=== PATIENT | female | born 1965 | race African-American/Black ===

== ENCOUNTER 2022-04-10 08:29 | Emergency (ER) | payer OTHER, SELFPAY ==
--- NOTE | ~2022-04-10 | XR_ITS ---
EXAMINATION: XR forearm RT 2V DATE: 04/10/2022 09:21 INDICATION: Right forearm laceration and swelling. TECHNIQUE: 2 views of right forearm were obtained. COMPARISON: None. FINDINGS: Bone alignment is normal. No fracture. Joint spaces are well maintained. There is no elbow joint effusion. IMPRESSION: 1. No fracture or radiopaque foreign body. Reviewed, dictated and finalized at location A.
[2022-04-10 08:41] VITALS: BP 151/87; PULSE 77; RESP 16; TEMP 36.6; O2SAT 99
--- NOTE | 2022-04-10 09:25 | ED.WOUNDLAC ---
HPI - Wound/Laceration General Chief Complaint: Wound/Laceration Stated Complaint: fell yesterday, arm injury Time Seen by Provider: 04/10/22 08:55 History of Present Illness HPI narrative: 56-year-old female presents emergency room for evaluation of injury to right forearm sustained from a fall that occurred yesterday. Patient states that she was carrying groceries down the stairs when she lost her footing and fell against the loose railing. The railing is wooden and when she fell into it caused her to have a skin tear to her right forearm. Injury occurred yesterday. Patient is noted swelling around the injured site. Related Data Allergies Allergy/AdvReac Type Severity Reaction Status Date / Time No Known Allergies Allergy Unverified 11/28/17 17:46 Review of Systems Review of Systems: CONSTITUTIONAL: Denies fever, chills, or sweats. EYES: Denies visual changes, redness, or discharge. ENT: Denies rhinorrhea, congestion, sore throat, or otalgia. CARDIOVASCULAR: Denies chest pain, palpitations, or edema. RESPIRATORY: Denies cough or dyspnea. GASTROINTESTINAL: Denies abdominal pain, nausea, vomiting, or diarrhea. GENITOURINARY: Denies dysuria or hematuria. SKIN: Denies rash or itching. MUSCULOSKELETAL: Reports right forearm pain NEUROLOGIC: Denies headache, numbness, dizziness, or weakness. PSYCHIATRIC: Denies anxiety or depression. Exam Narrative: GENERAL: Well-appearing, well-nourished, no physical limitations, and in no acute distress. HEAD: Normocephalic, atraumatic. EYES: Conjunctivae normal, PERRLA and EOMI. CHEST: Clear to auscultation. No respiratory distress. No wheezes rales or rhonchi. HEART: Regular rate and rhythm. No murmur heard. Normal peripheral pulses. EXTREMITIES: Normal range of motion. No edema. No clubbing or cyanosis SKIN: 1.5 cm skin tear anterior surface of the right forearm with surrounding tenderness and soft tissue swelling NEURO: No focal deficits. Alert and oriented x3. MAEW. CN's II-XI intact bilaterally, normal gait PSYCH: Cooperative. Normal mood and affect. Course Vital Signs Vital signs: Vital Signs Temperature 36.6 C 04/10/22 08:41 Pulse Rate 77 04/10/22 08:41 Respiratory Rate 16 04/10/22 08:41 Blood Pressure 151/87 H 04/10/22 08:41 Pulse Oximetry 99 04/10/22 08:41 Oxygen Delivery Room Air 04/10/22 08:41 Temperature 36.6 C 04/10/22 08:41 Pulse Rate 77 04/10/22 08:41 Respiratory Rate 16 04/10/22 08:41 Blood Pressure 151/87 H 04/10/22 08:41 Pulse Oximetry 99 04/10/22 08:41 Oxygen Delivery Room Air 04/10/22 08:41 MDM - Wound/Laceration Imaging Data Radiologist's impression: Impressions Forearm X-Ray 04/10/22 09:27 IMPRESSION: 1. No fracture or radiopaque foreign body. Discharge Plan Discharge Clinical Impression: Avulsion of skin, Contusion of forearm, right Patient Disposition: Home, Self-Care Condition: Stable Instructions: Antibiotic Form, Steristrips (ED) Additional Instructions: Keep wound clean and dry. Steri-Strips will fall off in 2 to 3 days. May apply ice to your injured forearm. Prescriptions: New cephalexin 500 mg capsule 500 mg PO Q12H 7 Days Qty: 14 0RF Follow-up/Referrals: UNKNOWN,DOCTOR [Primary Care Provider] - Time of Disposition: 09:48
[2022-04-10] MEDS: TETANUS,DIPHTHERIA,AC PERTUSSIS ADULT (0.5 ML) BOOSTRIX IM (10:02)
== END 2022-04-10 10:05 | disposition home or self-care (01) ==
PROVIDERS: Emergency Provider Nurse Practitioner Family
DX: S51.811A Laceration without foreign body of right forearm, initial encounter (principal); S50.11XA Contusion of right forearm, initial encounter; Z23 Encounter for immunization; W10.9XXA Fall (on) (from) unspecified stairs and steps, initial encounter
CPT/HCPCS: 73090; 90471; 90715; 99283

== ENCOUNTER 2022-05-02 14:18 | Emergency (ER) | payer OTHER, SELFPAY ==
[2022-05-02 14:22] VITALS: BP 154/87; PULSE 83; RESP 20; TEMP 36.2; O2SAT 94
--- NOTE | 2022-05-02 15:10 | PC.NURSE ---
pt states her ride has to be at work at 5 so she will come back in the morning to be seen.
== END 2022-05-02 15:54 | disposition left against medical advice (07) ==
DX: R21 Rash and other nonspecific skin eruption (principal)
CPT/HCPCS: 99199

== ENCOUNTER 2022-06-30 13:42 | Emergency (ER) | payer OTHER, SELFPAY ==
--- NOTE | ~2022-06-30 | CT_ITS ---
EXAMINATION: CT soft tissue neck w con DATE: 06/30/2022 17:37 INDICATION: Right facial swelling TECHNIQUE: Computed tomography (CT) of the neck was performed with 75 mL Omnipaque-350 intravenous co ntrast. Automated exposure control and iterative reconstruction technique were employed. The dose-beata gth product was 498.32 mGy-cm. COMPARISON: None FINDINGS: Extensive dental disease with multiple maxillary dental caries of varying severity. There are periapi elizabeth lucencies associated with the bilateral maxillary central and lateral incisors, the largest on th e left. The periapical lucency associated with the right central incisor erodes through the anterior cortex with associated 14 x 6 x 11 mm subperiosteal abscess which underlies the right nasolabial fold . Extensive stranding and haziness to the surrounding subcutaneous fat consistent with secondary cell ulitis. This extends across the midline at the upper lip, cephalad into the preseptal soft tissues at the inferior right orbit and caudally along the right cheek into the anterior right mandibular regio n. Orbits are are otherwise normal with no post septal inflammatory stranding. Opacification of a left e thmoid air cell. Remainder of the paranasal sinuses are clear. Mastoid air cells and middle ear cavit ies are clear. Mild likely reactive lymphadenopathy in the bilateral submandibular and high right jug ular chains. The bilateral parotid, submandibular and thyroid glands are normal. Mild emphysema at th e apices of lungs. Mild cervical spondylosis. IMPRESSION: 1. Extensive dental disease with erosion of a periapical abscess associated with the right maxillary central incisor which erodes through the anterior cortex with associated 14 x 6 x 11 mm subperiosteal abscess underlying the right nasolabial fold. Reviewed, dictated and finalized at location A. S [employer] IMPRESSION: 1. Extensive dental disease with erosion of a periapical abscess associated wit h the right maxillary central incisor which erodes through the anterior cortex with associated 14 x 6 x 11 mm subperiosteal abscess underlying the right nasol abial fold.
[2022-06-30 13:55] VITALS: BP 136/72; PULSE 82; RESP 14; TEMP 36.6; O2SAT 99
--- NOTE | 2022-06-30 15:45 | ED.DENTAL ---
HPI - Dental/Oral General Chief complaint: Dental/Oral Stated complaint: swelling to right eye Time Seen by Provider: 06/30/22 15:40 History of Present Illness HPI Narrative: A 56-year-old female with a history of hypertension presenting with facial swelling. Patient states that she has multiple teeth that need to be pulled. She has an appointment in 10 days to have most of her upper teeth pulled. Unfortunately, over the last several days she has had pain in one of her right upper molars and has since developed swelling on the right side of her face. States that it has been gradually getting worse over the last day and a half. States that today she woke up and the swelling was up to her eye. States that her pain has been moderately improved with ibuprofen. She denies any throat pain, dysphagia, odynophagia. Denies eye pain or vision changes. No fevers or chills. Related Data Allergies Allergy/AdvReac Type Severity Reaction Status Date / Time No Known Allergies Allergy Verified 06/30/22 13:58 Review of Systems Review of Systems: All systems reviewed & are unremarkable except as noted in HPI and below Exam Narrative: GENERAL: Well-appearing, well-nourished, and in no acute distress. HEAD: Normocephalic, atraumatic. EYES: PERRLA and EOMI. ENT: Poor dentition throughout with multiple broken and decaying teeth, facial swelling of the right side of her face extending to the right eye, no overlying erythema, no intraoral swelling, handling her secretions well NECK: Supple. CHEST: Clear to auscultation. No respiratory distress. HEART: Regular rate and rhythm. No murmur heard. Normal peripheral pulses. ABDOMEN: Soft, nontender, nondistended, normal active bowel sounds. EXTREMITIES: Normal range of motion. No edema. SKIN: Warm, dry, no rash. NEURO: No focal deficits. Alert and oriented x3. PSYCH: Normal mood and affect. Course Vital Signs Vital signs: Vital Signs Temperature 97.8 F 06/30/22 13:55 Pulse Rate 82 06/30/22 13:55 Respiratory Rate 14 06/30/22 13:55 Blood Pressure 136/72 06/30/22 13:55 Pulse Oximetry 99 06/30/22 13:55 Oxygen Delivery Room Air 06/30/22 13:55 Temperature 97.8 F 06/30/22 13:55 Pulse Rate 82 06/30/22 13:55 Respiratory Rate 14 06/30/22 13:55 Blood Pressure 136/72 06/30/22 13:55 Pulse Oximetry 99 06/30/22 13:55 Oxygen Delivery Room Air 06/30/22 13:55 MDM - Dental/Oral MDM Narrative Medical decision making narrative: Patient is a 56-year-old female presenting with right-sided facial pain in the setting of dental infection. Patient states that she actually has an appointment with her dentist in 10 days to have numerous teeth removed. Given the extent of the swelling, CT neck was obtained which does show a periapical abscess involving the right maxillary central incisor and there is evidence of surrounding cellulitis. Patient was given a dose of Augmentin and will prescribe 10 days. Blood work with leukocytosis but is otherwise unremarkable. On reevaluation, the patient states that her pain is significantly improved. She is eating and drinking normally. Advised that she take the antibiotics as prescribed and recommended she call her dentist on Saturday morning to see if they can see her sooner. Strict return precautions were given. Patient voiced understanding and is agreeable with plan. Discharged in stable condition. Lab Data 06/30/22 16:15 06/30/22 16:55 Labs: Lab Results 06/30/22 06/30/22 Range/Units 16:15 16:55 WBC 11.8 H (4.5-10.0) K/mm3 RBC 5.03 (4.2-5.4) M/mm3 Hgb 15.3 H (12.0-15.0) g/dL Hct 45.1 (37.0-47.0) % MCV 89.7 (80-100) fl MCH 30.4 (26-34) pg MCHC 33.9 (32-36) g/dl RDW 13.2 (11.5-14.5) % Plt Count 281 (150-375) k/mm3 MPV 10.5 H (7.4-10.4) fl Immature Gran % (Auto) 0.3 (0-0.5) % Neut % (Auto) 67.8 (45.5-73.1) % Lymph % (Auto) 23.3 (18.3-44.2) % [facility]
[2022-06-30] MEDS: SODIUM CHLORIDE 0.9% IV 1,000 ML 999 ML IV CONT (16:13)
[2022-06-30] MEDS: KETOROLAC 15 MG/ML VIAL (*BKC) IV PUSH (16:14)
[2022-06-30] MEDS: MORPHINE SULFATE (*CRX) 2 MG/ML INJ IV PUSH (16:14)
[2022-06-30 16:44] LABS: Basophils Percent Auto 0.3 % (0.2-1.2); Eosinophils Absolute Auto 0.2 K/mm3 (0-0.3); Eosinophils Percent Auto 1.4 % (0-4.4); Hematocrit 45.1 % (37.0-47.0); Hemoglobin 15.3 g/dL (12.0-15.0); Immature Granulocyte Absolute 0.03 K/mm3 (0.00-0.031); Immature Granulocyte Percent A 0.3 % (0-0.5); Lymphocytes Absolute Auto 2.76 K/mm3 (0.9-3.2); Lymphocytes Percent Auto 23.3 % (18.3-44.2); Mean Corpuscular HGB Conc 33.9 g/dl (32-36); Mean Corpuscular Hemoglobin 30.4 pg (26-34); Mean Corpuscular Volume 89.7 fl (80-100); Mean Platelet Volume 10.5 fl (7.4-10.4); Monocytes Absolute Auto 0.8 K/mm3 (0.1-0.6); Monocytes Percent Auto 6.9 % (2.6-8.5); Neutrophils Percent Auto 67.8 % (45.5-73.1); Platelet Count Result 281 k/mm3 (150-375); Red Blood Count 5.03 M/mm3 (4.2-5.4); Red Cell Distribution Width 13.2 % (11.5-14.5); White Blood Count 11.8 K/mm3 (4.5-10.0)
[2022-06-30 17:14] LABS: Anion Gap 1 mmol/L (8-16); Blood Urea Nitrogen 7 mg/dL (7-17); Calcium 7.6 mg/dL (8.4-10.2); Carbon Dioxide 31 mmol/L (22-30); Chloride 103 mmol/L (98-107); Estimated CRCL calculation 98 ml/min; Estimated Glomerular Filt Rate > 60; Glucose 121 mg/dL (65-110); Potassium 3.6 mmol/L (3.4-5.0); Sodium 135 mmol/L (137-145)
[2022-06-30] MEDS: AMOXICILLIN/CLAVULANATE K 875-125 MG TAB 1 TABLET PO (18:43)
--- NOTE | 2022-06-30 19:19 | PC.NURSE ---
Patient report received from Jacek HOGAN at this time
== END 2022-06-30 19:46 | disposition home or self-care (01) ==
PROVIDERS: Emergency Provider Emergency Medicine
DX: K02.9 Dental caries, unspecified (principal); K04.7 Periapical abscess without sinus; I10 Essential (primary) hypertension
CPT/HCPCS: 36415; 70491; 80048; 85025; 96365; 96375; 99284; A9270; J0131; J1885; J2270; J7030; Q9967